=== PATIENT | male | born 1955 | race Caucasian/White ===

== ENCOUNTER → 2016-06-24 | Outpatient (CLI) | payer OTHER ==
[~2016-06-24] MED LIST: ATOR10TA88 PO; GABA600T PO; KETO10TA PO; NAPR-1169 PO; OXYC-57 PO; TRIATAB3 PO
[2016-06-24 17:10] LABS: BASO % 0.8 %; BASO ABS # 0.07 K/uL (0-0.2); COMPLETE YES; EOS % 3.6 %; HEMATOCRIT 43.7 % (42-52); IG% 0.4 %; LYMPH % 32.2 %; LYMPH ABS # 2.75 K/uL (1.2-3.4); MEAN CELL VOLUME 89.9 fL (80-100); MEAN CORPUSCULAR HEMOGLOBIN 31.1 pg (25-34); MEAN CORPUSCULAR HGB CONC 34.6 g/dl (32-36); MEAN PLATELET VOLUME 8.9 fL (7.4-10.4); MONO % 9.3 %; NEUT % 53.7 %; PLATELET COUNT 316 K/uL (130-400); RED BLOOD COUNT 4.86 M/uL (4.7-6.1); WHITE BLOOD COUNT 8.53 K/uL (4.8-10.8)
[2016-06-24 17:22] LABS: BLOOD UREA NITROGEN 29 mg/dl (7-18); BUN/CREATININE RATIO 28.6 (10-20); CALCIUM 9.4 mg/dl (8.5-10.1); CARBON DIOXIDE 30 mmol/L (21-32); CHLORIDE 105 mmol/L (98-107); GLUCOSE 97 mg/dl (70-99); POTASSIUM 3.6 mmol/L (3.5-5.1); SODIUM 141 mmol/L (136-145)
== END | disposition home or self-care (01) ==
LOC: C.LABBC 14:17
PROVIDERS: ATTEND Orthopaedic Surgery
DX: M25.511 Pain in right shoulder (principal)

== ENCOUNTER → 2016-07-09 | Day surgery (SDC) | payer OTHER ==
[2016-06-29 07:35] VITALS: Ht 182.9 cm; Wt 110.5 kg
[~2016-07-09] VITALS: Ht 182.9 cm; Wt 110.5 kg
[~2016-07-09] MED LIST changes: -ATOR10TA88 PO; +ATROPINE SULFATE 0.1 MG/ML 5ML SYR IV PRN; +BUPIVACAINE/EPINEPHRINE 0.25% 1:200,000 30 ML VIAL ONE; +CEFAZOLIN 2000 MG/60 ML D5W IV SCH; +DEXAMETHASONE SOD INJ 4 MG/ML VIAL ONE; +DiphenhydrAMINE HCL 50 MG/ML VIAL ONE; +EpHEDrine SULFATE 50MG/5ML SYR ONE; +EpHEDrine SULFATE INJ 50 MG/ML AMP IV PRN; +EpINEphrine INJ 1MG/ML AMP 1 MG/ML AMP ONE; +FENTANYL CITRATE INJ 50 MCG/1 ML 2 ML VIAL IV PRN; +FENTANYL CITRATE INJ 50 MCG/1 ML 2 ML VIAL ONE; -GABA600T PO; +GLYCOPYRROLATE INJ 0.2 MG/ML VIAL ONE; +KETOROLAC TROMETHAMINE 30 MG/ML VIAL ONE; +LACTATED RINGER'S 1000ML 1,000 ML IV SCH; +LIDOCAINE HCL 1% MPF 2 ML VIAL ONE; +LIDOCAINE HCL 2% 2 ML VIAL (20MG/ML) ONE; +METOCLOPRAMIDE HCL INJ 5 MG/ML 2 ML VIAL IV PRN; +METOCLOPRAMIDE HCL INJ 5 MG/ML 2 ML VIAL ONE; +MIDAZOLAM HCL 1 MG/ML 2ML VIAL ONE; +NEOSTIGMINE METHYLSULFATE 5 MG/5 ML SYR ONE; +ONDANSETRON INJ 2 MG/ML 2 ML VIAL IV PRN; +ONDANSETRON INJ 2 MG/ML 2 ML VIAL ONE; +OXYCODONE/ACETAMINOPHEN 5-325 TAB PO PRN; +PROPOFOL IV EMULSION 10 MG/ML 20 ML VIAL IV ONE; +ROCURONIUM BROMIDE 10 MG/ML 5 ML VIAL ONE; +ROPIVACAINE 0.5% 5 MG/ML 30 ML VIAL ONE; +SCOPOLAMINE 1.5 MG TDSY TD ONE; +SODIUM CHLORIDE 0.9% 1000ML 1,000 ML IV SCH
--- NOTE | 2016-07-09 11:30 | History & Physical Bridge - [place] ---
H&P Re-Evaluation Bridge Note: I have examined the patient, reviewed the History & Physical and in the interval since the performance of the History & Physical I have noted the following changes of clinical significance: No changes noted
--- NOTE | 2016-07-09 15:43 | [facility] Post Operative Brief Note ---
Immediate Operative Summary Operative Date Jul 09, 2016. Pre-Operative Diagnosis Right Shoulder Large Rotator Cuff Tear Post-Operative Diagnosis Same Procedure(s) Performed Right Shoulder Arthroscopy, Massive Rotator Cuff Repair, Acromioplasty, Open Bicep Tenodesis Surgeon Dr. Lee Urinalysis Technician Surgeon(s) Chase Lind PA-C Estimated Blood Loss 100 mL Findings as above Specimens None Complication(s) None Disposition Recovery Room / PACU
--- NOTE | 2016-07-09 16:11 | Discharge Instructions-SurgCtr ---
Discharge Instructions Visit Reason for Visit: Right Shoulder Full Thickness Rotator Cuff Tear Discharge Discharge Diagnosis / Problem: SAME ABOVE Discharge Goals Goal(s): Decrease discomfort, Improve function Medications Stopped Medications Name(s): NO blood thinners for over a week Restart Stopped Medication(s): MAY RESTART 07/10/2016 Activity Recommendations Activity Limitations: resume your previous activity Lifting Limitations: until after follow-up appointment Exercise/Sports Limitations: until after follow-up appointment Shower/Bathe: may shower/bathe in 3 days Driving or Machine Use: NO DRIVING UNTIL SEEN FOR FOLLOW-UP Anesthesia . Post Anesthesia Instructions: If you have had General Anesthesia or IV Sedation: * Do not drive today. * Resume driving when surgeon permits. * Do not make important decisions or sign legal documents today. * Call surgeon for: 1. Temperature elevations greater than 101 degrees F. 2. Uncontrollable pain. 3. Excessive bleeding. 4. Persistent nausea and vomiting. 5. Medication intolerance (nausea, vomiting or rash). * For nausea and vomiting use only clear liquids such as: tea, soda, bouillon until nausea subsides, then gradually increase diet as tolerated. * If you have any concerns or questions, call your surgeon's office. If physician is unavailable and it is an emergency, call 911 or go to the nearest emergency room. . Instructions / Follow-Up Instructions / Follow-Up MEDICATIONS: * Resume previous medications unless instructed otherwise by your surgeon. * Always take pain medication on a full stomach or with food to avoid upset stomach. * Do not drink alcohol or drive while taking narcotics. * Ibuprofen or Tylenol may be taken if narcotic not needed. SPECIAL CARE INSTRUCTIONS: __ None _X_ Keep extremity elevated and iced x 48 hours; apply ice 20-30 minutes 8-10 times/day. May remove at night. __ Sling __24 hrs/day __ Remove at night _X_ Shoulder Immobilizer (MAY ONLY BE REMOVED TO SHOWER IN 48-72 HOURS) _X_ 24 hrs/day __ Remove at night _X_ Dressing __ Maintain until seen in office, may shower with plastic over site _X_ Remove dressings in 24-48 hours and then may shower _X_ Cover incisions with band-aids after showering __ Do not remove steri-strips Call physician if chills or temperature rises above 102 degrees or pain unrelieved by prescribed pain medications at . ONLY REMOVE THE ORANGE IOBAN, ABD, AND 4X4'S. YOU WILL NOTICE A PURPLE TINGED GLUE LIKE SUBSTANCE NEAR THE ARMPIT. THIS IS TO REMAIN ON UNTIL SEEN FOR FOLLOW-UP . Diet Recommendations Home Diet: no limitations Fluid Restriction: None Procedures Procedures Performed: Right Shoulder Arthroscopy, Massive Rotator Cuff Repair, Acromioplasty, Open Bicep Tenodesis Pending Studies Studies pending at discharge: no Work Instructions Return To Work: after follow-up Lifting Limitations: NO LIFTING OR USE OF RIGHT ARM Medical Emergencies . Who to Call and When: Medical Emergencies: If at any time you feel your situation is an emergency, please call 911 immediately. . Non-Emergent Contact Non-Emergency issues call your: Primary Care Provider Call Non-Emergent contact if: you have a fever, temperature is above 101.5 . . "Provider Documentation" section prepared by Marcos Lind.
[2016-07-09 17:00] VITALS: TEMP 36.4
[2016-07-09 17:10] VITALS: BP 119/72; PULSE 93; O2SAT 93
--- NOTE | 2016-07-09 17:11 | Anesthesia Progress Nt - [facility] ---
Anesthesia Post Op Note Date & Time Jul 09, 2016 at 17:11 Vital Signs Pain Intensity: 0 Vital Signs Past 12 Hours Date Time Temp Pulse Resp B/P Pulse Ox O2 Delivery O2 Flow Rate FiO2 07/09/16 17:10 93 16 119/72 93 Room Air 07/09/16 17:00 36.4 88 16 120/76 94 Room Air 07/09/16 16:39 89 15 146/67 93 07/09/16 16:37 36.6 07/09/16 16:35 87 13 92 07/09/16 16:35 87 13 07/09/16 16:34 146/67 07/09/16 16:30 85 17 07/09/16 16:30 85 17 97 07/09/16 16:28 118/66 07/09/16 16:25 85 12 07/09/16 16:25 85 12 96 07/09/16 16:23 129/76 07/09/16 16:20 88 23 92 07/09/16 16:20 88 23 07/09/16 16:19 116/70 07/09/16 16:15 85 21 97 07/09/16 16:15 85 21 07/09/16 16:13 163/69 07/09/16 16:10 82 19 07/09/16 16:10 82 19 97 07/09/16 16:09 133/87 07/09/16 16:05 85 21 97 07/09/16 16:05 85 21 07/09/16 16:03 123/78 07/09/16 16:00 86 18 07/09/16 16:00 86 18 97 07/09/16 15:56 36.5 89 16 132/75 98 Diffusion Mask 8 07/09/16 12:26 75 23 97 07/09/16 12:26 75 07/09/16 12:24 132/93 07/09/16 12:24 132/93 07/09/16 12:23 76 20 94 07/09/16 12:23 74 07/09/16 12:21 74 18 97 07/09/16 12:21 74 07/09/16 12:18 78 21 139/97 98 07/09/16 12:18 76 07/09/16 12:18 139/97 07/09/16 12:17 140/87 07/09/16 12:17 140/87 07/09/16 12:16 80 07/09/16 12:16 83 41 97 07/09/16 12:16 83 41 97 07/09/16 12:16 80 07/09/16 12:13 140/87 07/09/16 12:13 140/87 07/09/16 12:11 75 07/09/16 12:11 76 0 95 07/09/16 12:11 76 0 95 07/09/16 12:11 75 07/09/16 12:10 139/97 07/09/16 12:10 139/97 07/09/16 11:25 36.7 73 16 131/93 96 Room Air Notes Mental Status: alert / awake / arousable, participated in evaluation Pt Amnestic to Procedure: Yes Nausea / Vomiting: adequately controlled Pain: adequately controlled Airway Patency, RR, SpO2: stable & adequate BP & HR: stable & adequate Hydration State: stable & adequate Anesthetic Complications: no major complications apparent
--- NOTE | 2016-07-09 17:39 | OPERATIVE REPORT ---
DATE OF OPERATION: 07/09/2016 PREOPERATIVE DIAGNOSIS: Massive right rotator cuff tear. POSTOPERATIVE DIAGNOSIS: Same. PROCEDURE: Right shoulder diagnostic arthroscopy with extensive debridement, acromioplasty, arthroscopic rotator cuff repair of an acute tear of the infraspinatus with arthroscopic rotator cuff repair of the chronic tear of the supraspinatus, and an open rotator cuff repair of the subscapularis and an open biceps tenodesis. SURGEON: Ariel Lee DO DOOR TRIMMER: Kyrie Lind PA-C, whose assistance was necessary for positioning the arm and helping with instrumentation. ANESTHESIA: General with a right interscalene nerve block. COMPLICATIONS: None. CONDITION: Stable to PACU. NOTE: This case that took increased time with increased difficulty given the size of the tear. Arthroscopic repair had to be done at both the infraspinatus and then a chronic cuff repair of the supraspinatus with an open cuff repair of the subscapularis. This case took over twice as long as a regular rotator cuff repair. INDICATIONS FOR PROCEDURE: Max is a pleasant 61-year-old male who fell hard on to his right shoulder a couple weeks ago. He was unable to lift his arm. He denies any shoulder pain before the incident. MRI and clinical examination were diagnostic for massive rotator cuff tear with possibly being chronic. He elected to proceed with arthroscopy. DESCRIPTION OF PROCEDURE: On 07/09/2016, he arrived at [facility] for the above procedure. He was seen in the preoperative holding area and the operative extremity was identified and signed. He was then given a preoperative antibiotic and a right interscalene nerve block. He was taken back to the operating room, laid on the table in supine position and put under general anesthesia. He was then put into the beach chair position. The right shoulder was prepped and draped in sterile fashion. Time-out was done and the patient and operative extremity was properly identified. A scope was introduced in the posterior portal. Diagnostic arthroscopy showed a little bit of grade 3 chondral damage on the inferior portion of the humeral head, but the rest of the humerus looked fine. The glenoid looked okay. There was a lot of fraying of the labrum. There was medial subluxation of the biceps tendon and significant fraying of the biceps. There was a rotator cuff tear involving almost the entire subscapularis, the entire supraspinatus, and the majority of the infraspinatus. The subscapularis and infraspinatus tears appeared to be more acute. The supraspinatus tear was chronic. An anterior portal was made. A shaver was used to start an extensive debridement of some of the intraarticular structures and the biceps tendon was arthroscopically tenotomized. The scope was then put into the subacromial space. A lateral portal was made. A shaver was used to do a complete subacromial and subdeltoid bursectomy. The coracoacromial ligament was teased off the undersurface of the acromion and a 5-0 xochitl was used to complete an acromioplasty of a Bigliani type 3 acromion. A shaver was used to remove any excess debris and the bursal side of the rotator cuff was examined. There was an acute tear of the infraspinatus, a chronic retracted tear of the supraspinatus, and an acute tear of the subscapularis. An additional anterolateral portal was made and Zoila cannulas were placed in each of the lateral portals. The greater tuberosity was prepared with a ring curette and a microfracture. The infraspinatus was fixed with a standard Arthrex SpeedBridge configuration using FiberTapes. The supraspinatus was then fixed with two rip-stop sutures using Arthrex FiberTape. Two 4.5 mm corkscrew anchors were placed along the medial row and sutures were passed around the rip-stop FiberTape. The FiberTapes were then brought down to a lateral row SwiveLock suture anchor and the medial row tails were tied. Multiple pictures were taken. A decision was made to do an open subscapularis repair. A deltopectoral incision was used. He has had some arthritis of his shoulder and preparing for a possible shoulder replacement in the future. The cephalic vein was sacrificed after it was bleeding. The deltopectoral interval was opened up and the anterior shoulder was exposed. The subscapularis was grabbed with a tag stitch. The lesser tuberosity was prepared with a ring curette and a microfracture. The subscapularis was then fixed with an Arthrex SpeedBridge configuration using FiberTapes. The biceps tendon was then tenodesed to the upper border of the pec major. The wound was then irrigated. Hemostasis was controlled. The portal sites were closed with 3-0 nylon. Skin was closed with 3-0 Vicryl and a 3-0 V-Loc suture, a Prineo dressing. He was then placed in a soft compressive dressing and an abduction arm sling. He was then extubated, transferred to a [facility] and taken to the postanesthesia care unit in stable condition. He tolerated the procedure well. I attest to the content of the Intraoperative Record and any orders documented therein. Any exceptio ns are noted below.
== END | disposition home or self-care (01) ==
LOC: X.SURG 09:19
PROVIDERS: ATTEND Orthopaedic Surgery
DX: S43.421A Sprain of right rotator cuff capsule, initial encounter (principal); W18.30XA Fall on same level, unspecified, initial encounter; E78.5 Hyperlipidemia, unspecified; I10 Essential (primary) hypertension; Y93.82 Activity, spectator at an event; Y92.89 Other specified places as the place of occurrence of the external cause; Y99.8 Other external cause status; Z88.5 Allergy status to narcotic agent; Z88.8 Allergy status to other drugs, medicaments and biological substances

== ENCOUNTER 2017-07-16 10:30 | Inpatient (IN) | payer OTHER ==
[2017-06-16 11:09] VITALS: BMI 32.0
--- NOTE | 2017-06-16 11:42 | PAT Medication Instructions ---
Service Date Jun 16, 2017. Current Home Medication List Diclofenac (Voltaren), 75 MG PO BID Triamterene/Hctz (Triamterene/Hctz 37.5-25MG), 1 TAB PO QAM Medication Instructions For Your Scheduled Surgery - Check with surgeon for instructions: Diclofenac (Voltaren), 75 MG PO BID - Hold the following medications the morning of surgery: Triamterene/Hctz (Triamterene/Hctz 37.5-25MG), 1 TAB PO QAM *nothing to eat or drink after midnight* If you have any questions please call us at [phone] or [phone] or [phone]
[2017-06-16 12:14] LABS: BASO % 0.7 %; BASO ABS # 0.05 K/uL (0-0.2); EOS % 2.6 %; HEMATOCRIT 43.5 % (42-52); HEMOGLOBIN 15.3 g/dL (14.0-18.0); IG# 0.02 K/uL (0.00-0.02); LYMPH % 30.4 %; LYMPH ABS # 2.33 K/uL (1.2-3.4); MEAN CELL VOLUME 92.2 fL (80-100); MEAN CORPUSCULAR HEMOGLOBIN 32.4 pg (25-34); MEAN CORPUSCULAR HGB CONC 35.2 g/dl (32-36); MEAN PLATELET VOLUME 8.4 fL (7.4-10.4); MONO % 7.3 %; MONO ABS # 0.56 K/uL (0.11-0.59); NEUT % 58.7 %; PLATELET COUNT 284 K/uL (130-400); RED CELL DISTRIBUTION WIDTH CV 13.2 % (11.5-14.5); RED CELL DISTRIBUTION WIDTH SD 44.9 fL (36.4-46.3); WHITE BLOOD COUNT 7.66 K/uL (4.8-10.8)
[2017-06-16 12:29] LABS: PTT PATIENT 24.2 SECONDS (21.0-31.0)
--- NOTE | 2017-06-16 12:31 | DIAGNOSTIC IMAGING REPORT ---
CHEST 2 VIEWS ROUTINE CLINICAL HISTORY: PAT preoperative evaluation COMPARISON STUDY: No previous studies for comparison. FINDINGS: The bones soft tissues and hemidiaphragms are normal. The cardiomediastinal silhouette is normal. The lungs are clear. The pulmonary vasculature is normal. IMPRESSION: Negative chest. The above report was generated using voice recognition software. It may contain grammatical, syntax or spelling errors. Electronically signed by: Rod Minor M.D. 06/16/2017 12:29 PM Dictated Date/Time: 06/16/2017 12:29 PM
[2017-06-16 13:05] LABS: CALCIUM 9.4 mg/dl (8.5-10.1); CREATININE 1.23 mg/dl (0.60-1.40); POTASSIUM 3.6 mmol/L (3.5-5.1)
--- NOTE | 2017-07-15 09:48 | HISTORY & PHYSICAL EXAMINATION ---
DATE OF ADMISSION: 07/16/2017 CHIEF COMPLAINT: Severe osteoarthritis of the right knee. HISTORY OF PRESENT ILLNESS: Max is a pleasant 62-year-old male who has been dealing with chronic bilateral knee pain, right worse than left. He notes instability of his knees. He is having trouble walking even short distances. X-rays and clinical examination have been diagnostic for severe osteoarthritis. After failing extensive conservative treatment, he has elected to proceed with total knee arthroplasty. PAST MEDICAL HISTORY: Significant for hypertension, history of a DVT in his right lower extremity status post surgery 15 years ago, osteoarthritis. MEDICATIONS: Include triamterene/HCTZ 37.5/25 mg daily, diclofenac 75 mg daily for pain and taurine 400 mg daily for cramps. PAST SURGICAL HISTORY: Significant for bilateral rotator cuff repairs and ACDF. ALLERGIES: INCLUDE CODEINE AND TRAMADOL. SOCIAL HISTORY: He denies any tobacco, alcohol or IV drug use. He still works hard. REVIEW OF SYSTEMS: He complains mostly of right knee pain. All other pertinent review of systems is negative. PHYSICAL EXAMINATION: GENERAL: He is awake, alert and oriented x3. He is in no apparent distress. He is very pleasant. HEENT: Pupils equal, round and reactive to light. Extraocular motion intact. Oral mucosa is pink and moist. HEART: Regular rate per radial pulse. LUNGS: Hien symmetrically bilaterally with no audible breath sounds. ABDOMEN: Soft, nontender, nondistended. MUSCULOSKELETAL: On physical examination of his knees, he does have a varus deformity. His range of motion is from 5-110 degrees. No cruciate or collateral ligament instability. He has significant tenderness to palpation along the medial joint line and over the distal medial femoral condyle. He has an old incision on the right knee from previous ACL repair. He has 5/5 muscle strength with extension of his right leg. IMAGING STUDIES: X-rays of the right knee do show a small piece of hardware from a previous ACL reconstruction. There is severe osteoarthritis with complete collapse of the medial joint space, severe osteophyte formation and varus deformity. IMPRESSION: Advanced osteoarthritis of the right knee. PLAN: We will proceed with a Biomet total knee arthroplasty. Postoperatively, he will be started on aspirin for DVT prophylaxis as long as he is up and weightbearing. He will likely be in the hospital for 1 or 2 nights for postoperative medical management.
[~2017-07-16] VITALS: Ht 182.9 cm; Wt 106.7 kg
[2017-07-16] MEDS: TRANEXAMIC ACID INJ 1,000 MG in SYRINGE 0 ML IV SCH ×2 (06:30→14:20)
[~2017-07-16 10:30] MED LIST changes: +ACETAMINOPHEN 500 MG TAB PO SCH; -ATROPINE SULFATE 0.1 MG/ML 5ML SYR IV PRN; +BUPIVACAINE 0.5 % 5 MG/1 ML PF 10ML VIAL ONE; -BUPIVACAINE/EPINEPHRINE 0.25% 1:200,000 30 ML VIAL ONE; -CEFAZOLIN 2000 MG/60 ML D5W IV SCH; +CEFAZOLIN 2000MG IV PUSH 15 ML IV SCH; -DEXAMETHASONE SOD INJ 4 MG/ML VIAL ONE; +DICL-201 PO; -DiphenhydrAMINE HCL 50 MG/ML VIAL ONE; -EpHEDrine SULFATE 50MG/5ML SYR ONE; -EpHEDrine SULFATE INJ 50 MG/ML AMP IV PRN; -EpINEphrine INJ 1MG/ML AMP 1 MG/ML AMP ONE; +FAMOTIDINE 20 MG TAB PO SCH; -FENTANYL CITRATE INJ 50 MCG/1 ML 2 ML VIAL IV PRN; -FENTANYL CITRATE INJ 50 MCG/1 ML 2 ML VIAL ONE; +GABAPENTIN 300 MG CAP PO SCH; -GLYCOPYRROLATE INJ 0.2 MG/ML VIAL ONE; -KETO10TA PO; -KETOROLAC TROMETHAMINE 30 MG/ML VIAL ONE; +LACTATED RINGER'S 1000ML 500 ML IV SCH; +LACTATED RINGER'S 1000ML IV SCH; -LIDOCAINE HCL 1% MPF 2 ML VIAL ONE; -LIDOCAINE HCL 2% 2 ML VIAL (20MG/ML) ONE; -METOCLOPRAMIDE HCL INJ 5 MG/ML 2 ML VIAL IV PRN; -METOCLOPRAMIDE HCL INJ 5 MG/ML 2 ML VIAL ONE; -MIDAZOLAM HCL 1 MG/ML 2ML VIAL ONE; -NAPR-1169 PO; -NEOSTIGMINE METHYLSULFATE 5 MG/5 ML SYR ONE; -ONDANSETRON INJ 2 MG/ML 2 ML VIAL IV PRN; -ONDANSETRON INJ 2 MG/ML 2 ML VIAL ONE; -OXYC-57 PO; -OXYCODONE/ACETAMINOPHEN 5-325 TAB PO PRN; -PROPOFOL IV EMULSION 10 MG/ML 20 ML VIAL IV ONE; -ROCURONIUM BROMIDE 10 MG/ML 5 ML VIAL ONE; -ROPIVACAINE 0.5% 5 MG/ML 30 ML VIAL ONE; +ROPIVACAINE 5MG/ML 30 ML 150 MG, BUPIVACAINE 0.5% MPF INJ 30 ML, EpINEphrine HCL INJ 0.... INFIL SCH; -SCOPOLAMINE 1.5 MG TDSY TD ONE; -SODIUM CHLORIDE 0.9% 1000ML 1,000 ML IV SCH
[2017-07-16 11:15] VITALS: BP 168/102; PULSE 92; TEMP 36.8; O2SAT 94; Ht 182.9 cm; Wt 106.7 kg
[2017-07-16] MEDS ORDERED: EpHEDrine SULFATE INJ 50 MG/ML AMP IV PRN (12:00)
[2017-07-16] MEDS ORDERED: ATROPINE SULFATE 0.1 MG/ML 5ML SYR IV PRN (12:00)
[2017-07-16] MEDS ORDERED: ONDANSETRON INJ 2 MG/ML 2 ML VIAL IV PRN ×2 (12:00→16:15)
[2017-07-16] MEDS ORDERED: FENTANYL CITRATE INJ 50 MCG/1 ML 2 ML VIAL IV PRN (12:00)
[2017-07-16] MEDS ORDERED: MIDAZOLAM HCL 1 MG/ML 2ML VIAL ONE (13:21)
[2017-07-16] MEDS ORDERED: FENTANYL CITRATE INJ 50 MCG/1 ML 2 ML VIAL ONE (13:21)
[2017-07-16] MEDS ORDERED: PROPOFOL IV EMULSION 10 MG/ML 20 ML VIAL IV ONE (13:24)
[2017-07-16] MEDS ORDERED: SCOPOLAMINE 1.5 MG TDSY TD ONE (14:17)
[2017-07-16] MEDS ORDERED: ORTHO JOINT ANESTHETIC ONE (14:21)
[2017-07-16] MEDS ORDERED: BACITRACIN 50000 UNIT VIAL ONE (15:44)
--- NOTE | 2017-07-16 16:14 | [facility] Post Operative Brief Note ---
Immediate Operative Summary Operative Date Jul 16, 2017. Pre-Operative Diagnosis Degenerative Joint Disease Right Knee Post-Operative Diagnosis Degenerative Joint Disease Right Knee Procedure(s) Performed Right Total Knee Arthroplasty Surgeon Jesus Payroll Human Resources Assistant Surgeon(s) Lelo Estimated Blood Loss 5cc Findings Consistent with Post-Op Diagnosis Specimens Bone/Tissue Right Knee Anesthesia Type MAC Spinal Regional Complication(s) none Disposition Disposition: Recovery Room / PACU
[2017-07-16] MEDS ORDERED: MoRPHine SULFATE 2 MG/ML CARP IV PRN (16:15)
[2017-07-16] MEDS ORDERED: BISACODYL 10 MG SUPP PR PRN (16:15)
[2017-07-16] MEDS ORDERED: SOD PHOSPHATE/SOD BIPHOSPHATE ENEMA 132 ML BTL PR PRN (16:15)
[2017-07-16] MEDS ORDERED: MAGNESIUM HYDROXIDE SUSP 30 ML UDC PO PRN (16:15)
[2017-07-16] MEDS ORDERED: METOCLOPRAMIDE HCL INJ 5 MG/ML 2 ML VIAL IV PRN (16:15)
[2017-07-16] MEDS ORDERED: ONDANSETRON INJ 2 MG/ML 2 ML VIAL ONE (16:24)
--- NOTE | 2017-07-16 16:46 | DIAGNOSTIC IMAGING REPORT ---
R KNEE 1 OR 2 VIEWS ROUTINE CLINICAL HISTORY: 62 years-old Male presenting with AP/LATERAL IN PACU RIGHT KNEE. TECHNIQUE: Frontal and lateral views of the right knee were obtained. COMPARISON: 05/04/2017. FINDINGS: There has been interval postsurgical change of total right knee arthroplasty with patellar resurfacing. Expected intra-articular and soft tissue emphysema. A surgical drain is in place. Overlying skin saravanan along the anterior knee. No malalignment. No periprosthetic fracture. No hardware complication. Lucency along the medullary cavity of the proximal tibia likely postsurgical. IMPRESSION: Expected postsurgical appearance status post total right knee arthroplasty with patellar resurfacing. Electronically signed by: Adrian Uribe M.D. 07/16/2017 4:44 PM Dictated Date/Time: 07/16/2017 4:43 PM
--- NOTE | 2017-07-16 17:11 | Anesthesiology Progress Note ---
Anesthesia Post Op Note Date & Time Jul 16, 2017 at 17:11 Vital Signs Pain Intensity: 0 Vital Signs Past 12 Hours Date Time Temp Pulse Resp B/P (MAP) Pulse Ox O2 Delivery O2 Flow Rate FiO2 07/16/17 17:02 82 16 98 07/16/17 17:02 82 16 07/16/17 17:00 123/75 07/16/17 17:00 36.8 07/16/17 16:57 79 15 100 07/16/17 16:57 79 15 07/16/17 16:56 124/79 07/16/17 16:52 80 15 96 07/16/17 16:52 81 15 07/16/17 16:51 84 17 07/16/17 16:51 84 17 109/74 92 07/16/17 16:46 85 22 07/16/17 16:46 90 22 93 07/16/17 16:45 110/71 07/16/17 16:41 84 17 122/74 94 07/16/17 16:41 84 17 07/16/17 16:36 86 14 95 07/16/17 16:36 86 14 07/16/17 16:35 118/80 07/16/17 16:31 89 11 07/16/17 16:31 88 11 118/79 97 07/16/17 16:31 36.5 92 16 118/79 96 Oxymask 10 07/16/17 11:15 36.8 92 20 168/102 94 Room Air Notes Mental Status: alert / awake / arousable, participated in evaluation Pt Amnestic to Procedure: Yes Nausea / Vomiting: adequately controlled Pain: adequately controlled Airway Patency, RR, SpO2: stable & adequate BP & HR: stable & adequate Hydration State: stable & adequate Anesthetic Complications: no major complications apparent
[2017-07-16 17:25] VITALS: BP 118/77; PULSE 80; TEMP 36.6; O2SAT 92
[2017-07-16 17:55] VITALS: BP 138/79; PULSE 85; TEMP 36.9; O2SAT 95
[2017-07-16 18:25] VITALS: BP 121/68; PULSE 86; TEMP 36.4; O2SAT 95
[2017-07-16 19:25] VITALS: BP 100/62; PULSE 84; TEMP 36.4; O2SAT 93
--- NOTE | 2017-07-16 19:53 | OPERATIVE REPORT ---
DATE OF OPERATION: 07/16/2017 PREOPERATIVE DIAGNOSIS: Severe osteoarthritis of the right knee. POSTOPERATIVE DIAGNOSIS: Same. PROCEDURE: Right total knee arthroplasty. SURGEON: Ariel Lee DO. MACHINE STEAK TENDERIZER: Kyrie Lind PA-C, whose assistance was necessary for positioning of the leg and helping with retraction and closure. ANESTHESIA: Spinal with a right adductor nerve block. COMPLICATIONS: None. CONDITION: Stable to PACU. INDICATIONS: Max is a pleasant 62-year-old male who had an ACL reconstruction in the past. Unfortunately, he went on to develop arthritis of his right knee. After failing conservative treatment, he elected to undergo a right total knee arthroplasty. OPERATION AND FINDINGS: On 07/16/2017, he arrived at [facility] for the above procedure. He was seen in the preoperative holding area and the operative extremity was identified and signed. He was given appropriate antibiotic, a spinal anesthetic and a right adductor nerve block. He was taken back to the operating room, laid on the table in supine position and put under basic sedation. The right knee was then prepped and draped in sterile fashion. Time-out was done and the patient and operative extremity was properly identified. A midline incision was made directly over the patella. Dissection was taken down to the extensor mechanism and the medial parapatellar arthrotomy was used. The medial retinaculum was released and a portion of fat pad was excised. The ACL, PCL and meniscus were removed. The knee was flexed. A drill was sent down the center of the femoral canal, followed by an intramedullary jorge. Off that jorge, a distal femoral cutting block was placed. A 12 mm was resected off the distal femur at 5 degrees of valgus. A posterior referencing guide was then used to measure the distal femur and it measured to be a size 72.5. Two drill holes were placed in 3 degrees of external rotation and a 4-in-1 cutting block was impacted into place. Anterior, posterior and chamfer cuts were then made. A box cutting guide was then used and the box was resected for the posterior stabilizing component. The proximal tibia was exposed. A drill was sent down the center of the tibial canal followed by an intramedullary jorge. Off that jorge, a proximal tibial resection guide was placed. A 2 mm was resected off the low medial side. The tibia measured to be a size 79. It was set in the appropriate rotation, drilled and then punched. The posterior aspect of the knee was opened up and any soft tissue remnants and osteophytes were removed. Trial components were placed. The knee was brought through a full range of motion and felt to be stable. The patella was then everted and 8.5 mm was taken off the posterior aspect of the patella. The patella measured to be a size 34. Peg holes were drilled and a trial was placed. All trial components were then removed. The surrounding soft tissues were injected with 100 mL of orthopedic pain control cocktail. The final components were all cemented in place with Palacos G cement and a size 10 polyethylene insert with a PS Plus post was snapped into place and anterior bar was locked. The knee was then irrigated with 3 liters of normal saline solution with bacitracin. Two drains were placed. The extensor mechanism was closed with #2 FiberWire suture in the superior medial aspect and #1 Vicryl suture, both proximally and distally. The skin was closed with 2-0 Vicryl and 3-0 V-Loc suture and saravanan. He was then placed in a soft compressive dressing and transferred to the postanesthesia care unit in stable condition and tolerated the procedure well. IMPLANTS USED: I used a Biomet Vanguard total knee arthroplasty with a size 72.5 femur, 79 tibia, size 34 x 8.5 patella and a size 10 PS Plus polyethylene bearing. All components were cemented to the Palacos-G cement. I attest to the content of the Intraoperative Record and any orders documented therein. Any exception s are noted below.
[2017-07-16] MEDS: DOCUSATE SODIUM 100 MG CAP PO SCH (21:23)
[2017-07-16] MEDS: ASPIRIN 325 MG ECTAB PO SCH (21:23)
[2017-07-16] MEDS: SENNA 8.6 MG TAB PO SCH (21:23)
[2017-07-16] MEDS: CEFAZOLIN IV 2,000 MG in SYRINGE 0 ML IV SCH (21:32)
[2017-07-16] MEDS: KETOROLAC TROMETHAMINE 30 MG/ML VIAL IV. SCH (21:32)
[2017-07-16] MEDS ORDERED: CEFAZOLIN IV 2,000 MG in DEXTROSE 5% 50ML 50 ML IV SCH (22:00)
[2017-07-16 22:58] VITALS: BP 102/61; PULSE 72; TEMP 36.5; O2SAT 91
[2017-07-16] MEDS: SODIUM CHLORIDE 0.9% 1000ML 1,000 ML IV SCH (23:01)
[2017-07-17 03:12] VITALS: BP 111/60; PULSE 66; TEMP 36.7; O2SAT 97
[2017-07-17] MEDS: KETOROLAC TROMETHAMINE 30 MG/ML VIAL IV. SCH ×4 (03:17→22:01)
[2017-07-17] MEDS: SODIUM CHLORIDE 0.9% 1000ML 1,000 ML IV SCH (03:19)
[2017-07-17] MEDS: CEFAZOLIN IV 2,000 MG in SYRINGE 0 ML IV SCH (05:11)
[2017-07-17 06:06] LABS: HEMATOCRIT 39.8 % (42-52); HEMOGLOBIN 13.5 g/dL (14.0-18.0); MEAN CELL VOLUME 93.6 fL (80-100); MEAN CORPUSCULAR HEMOGLOBIN 31.8 pg (25-34); MEAN CORPUSCULAR HGB CONC 33.9 g/dl (32-36); MEAN PLATELET VOLUME 8.8 fL (7.4-10.4); PLATELET COUNT 220 K/uL (130-400); RED CELL DISTRIBUTION WIDTH CV 13.2 % (11.5-14.5); RED CELL DISTRIBUTION WIDTH SD 45.2 fL (36.4-46.3); WHITE BLOOD COUNT 13.46 K/uL (4.8-10.8)
[2017-07-17 06:42] LABS: CALCIUM 8.4 mg/dl (8.5-10.1); CREATININE 0.93 mg/dl (0.60-1.40); POTASSIUM 3.6 mmol/L (3.5-5.1)
[2017-07-17 07:50] VITALS: BP 105/65; PULSE 74; TEMP 36.8; O2SAT 96
[2017-07-17] MEDS: ASPIRIN 325 MG ECTAB PO SCH ×2 (08:40→21:16)
[2017-07-17] MEDS: DOCUSATE SODIUM 100 MG CAP PO SCH ×2 (08:40→21:16)
[2017-07-17] MEDS: TRIAMTERENE/HCTZ 37.5/25MG TAB PO SCH (08:40)
[2017-07-17] MEDS: MULTIVITAMIN TAB PO SCH (08:40)
[2017-07-17] MEDS: HYDROCODONE/ACETAMIN 5/325MG TAB PO PRN ×2 (08:41→21:17)
--- NOTE | 2017-07-17 08:47 | Discharge Instructions ---
Discharge Instructions Date of Service Jul 17, 2017. Admission Reason for Admission: Right Knee Degenerative Joint Disease Discharge Discharge Diagnosis / Problem: Right Total Knee Discharge Goals Goal(s): Decrease discomfort, Improve function Activity Recommendations Activity Limitations: as noted below . Instructions / Follow-Up Instructions / Follow-Up Activity and Therapy Recommendations: * If you are using [facility] then Physical Therapy will be provided until they feel you are ready to start Outpatient Physical Therapy. If you are not using a Home Health agency then Outpatient Physical Therapy should start about 3-5 days from your day of surgery. Therapy will last about 6-10 weeks * It is important not to put a pillow under your knee when you are relaxing or sleeping. It is just as important to make sure you are getting your knee perfectly straight as it is to regain your knee bend. * You were shown a series of exercises in the hospital. Do these exercises three times each day including the exercises you were shown in physical therapy. * Get up and walk several times each day. For the first four weeks, try not to stand or walk for more than one hour at a time. If you do stand or walk for more than one hour, you will not hurt anything, but your leg will likely swell. * As you feel comfortable, you may change from the walker or crutches to a cane and then to independent walking. Medications: * Narcotic You will likely be sent home from the hospital with a prescription for the narcotic pain medication that worked best throughout your stay. * Aspirin Most patients will be required to take Aspirin 325mg twice a day for 6 weeks after surgery. This is obtained [id number] and a prescription is not necessary. * Other medications may be prescribed for specific circumstances. If you have any questions, please call the office at . * Resume previous home medications unless otherwise instructed TEDs/Elastic Stockings: The white elastic stockings help limit swelling and prevent blood clots from forming in your legs.~ The more you wear them, the more they work. Wear them for six weeks. Showering: You may shower 5 days from the day of surgery. Let the soapy shower water run over the saravanan. Do not scrub or soak the incision. Things To Watch For: * Drainage from the incision site that occurs more than one week after your surgery. * Increased redness at the incision site. * Fever above 102 degrees Fahrenheit. * Unusual chest pain or shortness of breath. * Call [facility] at with any of the above problems Follow-Up Visit: Follow-up with Dr. Lee 2 weeks after your day of surgery. An appointment was probably scheduled when you signed-up for surgery in the office. If you have any questions call Office Instructions: More detailed instructions as well as Frequently Asked Questions were provided in a folder by our office when you signed-up for surgery. Please review these instructions when you get home. If you have any further questions or concerns, please feel free to call the office at [phone] Current Hospital Diet Patient's current hospital diet: Regular Diet Discharge Diet Recommended Diet: Regular Diet Procedures Procedures Performed: Right Total Knee Arthroplasty Pending Studies Studies pending at discharge: no Medical Emergencies . Who to Call and When: Medical Emergencies: If at any time you feel your situation is an emergency, please call [phone] immediately. . Non-Emergent Contact Non-Emergency issues call your: Surgeon Call Non-Emergent contact if: wound has increased drainage, wound has increased redness . "Provider Documentation" section prepared by Ariel Lee. . VTE Core Measure Inpt VTE Proph given/why not?: Other Anticoagulation (Aspirin 325 twice a day for 6 weeks)
--- NOTE | 2017-07-17 09:03 | PROGRESS NOTE ---
DATE: 07/17/2017 CHIEF COMPLAINT: Status post right total knee arthroplasty postoperative day #1. PROGRESS: Max was seen and examined at bedside today. Overall, he is doing very well. He has some soreness in the knee, but he has already been up and ambulating. He has no complaints. PHYSICAL EXAMINATION: EXTREMITIES: Right knee, the dressing is clean and dry. The drain was pulled overnight because it lost suction. He can almost get his knee out to full extension. He has active dorsiflexion and plantarflexion of his right ankle and sensation is intact. LABORATORY DATA: He has an H&H today of 13.5 and 39.8. His glucose is 108. His vital signs are all stable on room air and he is voiding on his own. X-rays postoperatively of the right knee show the prosthesis to be in anatomic alignment without any evidence of fracture, dislocation or loosening. IMPRESSION: Status post right total knee arthroplasty postop day #1. PLAN: At this point, he is doing well. He is on aspirin for DVT prophylaxis. We will continue hydrocodone, Toradol and morphine for pain control. He will get physical therapy today. Tomorrow morning if he is doing well, we will change the dressing and likely discharge him to home.
[2017-07-17 09:48] VITALS: BP 133/85; PULSE 86; O2SAT 96
[2017-07-17] MEDS ORDERED: NURSING VERBAL MED ORDER ONE (10:00)
[2017-07-17 13:36] VITALS: BP 137/74; PULSE 75; TEMP 36.9; O2SAT 95
[2017-07-17 15:07] VITALS: BP 130/72; PULSE 90; TEMP 36.8; O2SAT 94
[2017-07-17] MEDS: SENNA 8.6 MG TAB PO SCH (21:16)
[2017-07-17 23:33] VITALS: BP 127/72; PULSE 86; TEMP 36.8; O2SAT 92
[2017-07-18] MEDS: KETOROLAC TROMETHAMINE 30 MG/ML VIAL IV. SCH ×2 (04:17→10:10)
[2017-07-18 07:12] VITALS: BP 118/74; PULSE 76; TEMP 36.6; O2SAT 94
[2017-07-18] MEDS: HYDROCODONE/ACETAMIN 5/325MG TAB PO PRN (08:43)
[2017-07-18] MEDS: TRIAMTERENE/HCTZ 37.5/25MG TAB PO SCH (08:44)
[2017-07-18] MEDS: DOCUSATE SODIUM 100 MG CAP PO SCH (08:44)
[2017-07-18] MEDS: ASPIRIN 325 MG ECTAB PO SCH (08:44)
[2017-07-18] MEDS: MULTIVITAMIN TAB PO SCH (08:44)
[2017-07-18] MEDS ORDERED: HYDR-5688 PO (09:42)
[2017-07-18] MEDS ORDERED: ASPEC325 PO (09:42)
--- NOTE | 2017-07-18 10:02 | PROGRESS NOTE ---
DATE: 07/18/2017 CHIEF COMPLAINT: Status post right total knee arthroplasty day ____. PROGRESS: Max was seen and examined at bedside today. Overall, he is doing well. He was up and ambulating well yesterday with physical therapy. His pain is controlled. He has no complaints. PHYSICAL EXAMINATION: RIGHT KNEE: The dressing has been changed, the drain has been pulled. He can get his knee almost out in full extension and bend it beyond 90 degrees. He has active dorsiflexion and plantarflexion of his right ankle. Sensation is intact. IMPRESSION: Status post right total knee arthroplasty postop day #1. PLAN: At this point, he is doing well and happy with his progress. He is on aspirin for DVT prophylaxis. He has been up and ambulating well with physical therapy. His pain is well controlled. We will discharge him to home later this morning.
[2017-07-18 10:08] VITALS: BP 131/76; PULSE 87; O2SAT 94
[2017-07-18 10:26] VITALS: BP 118/74; PULSE 76; TEMP 36.6; O2SAT 94
--- NOTE | 2017-07-18 14:54 | DISCHARGE SUMMARY ---
DISCHARGE DIAGNOSIS: Primary osteoarthritis of the right knee. PROCEDURE: Right total knee arthroplasty on 07/16/[address] Ariel Lee. DISCHARGE INSTRUCTIONS: 1. Aspirin 325 mg twice a day for 6 weeks. 2. DELL hose stockings for 6 weeks. 3. Sawyer 5/325 one to two every 4 hours as needed for pain. 4. Voltaren 75 mg twice a day. 5. Triamterene/HCTZ 37.5/25 mg daily. 6. May shower 5 days from the day of surgery. 7. Follow up with Dr. Lee in 2 weeks. 8. Call the office of Dr. Lee with any questions or concerns. HOSPITAL COURSE: Max is a pleasant 62-year-old male who presented to my office with complaints of chronic right knee pain. X-rays and clinical examination were diagnostic for advanced osteoarthritis of the right knee. After failing conservative treatment, he elected to undergo a right total knee arthroplasty. On 07/16/2017, he arrived at [facility] and underwent a right knee replacement without complications. He had a spinal anesthetic and a right adductor nerve block. Postoperatively, he was started on aspirin for DVT prophylaxis and discharged to general orthopedic floors. His hospital course was uneventful. On postop day #1, his H&H was stable at 13.5 and 39.8. He was up and ambulating well with physical therapy and we worked on pain control throughout the day. On postop day #2, he was doing well, the dressing was changed, the drain was pulled and he was subsequently discharged to home with the above instructions.
== END 2017-07-18 11:21 | disposition home health service (06) | DRG 470 ==
LOC: C.ACU 10:30 → C.3E 10:50 → ENRESERV 16:47
PROVIDERS: ADMIT Orthopaedic Surgery; ATTEND Orthopaedic Surgery
PROC: 0SRC0J9 Replacement of Right Knee Joint with Synthetic Substitute, Cemented, Open Approach (ICD-10-PCS; principal; 2017-07-16 12:45)
DX: M17.11 Unilateral primary osteoarthritis, right knee (principal); I10 Essential (primary) hypertension; Z79.899 Other long term (current) drug therapy; Z86.718 Personal history of other venous thrombosis and embolism; Z88.5 Allergy status to narcotic agent